=== PATIENT | male | born 1965 | race Caucasian/White ===

== ENCOUNTER 2022-01-22 08:57 | Emergency (ER) | payer OTHER, SELFPAY ==
[2022-01-22 09:20] VITALS: BP 125/72; PULSE 80; RESP 18; TEMP 36.9; O2SAT 93
--- NOTE | 2022-01-22 09:36 | ED.URI ---
HPI - URI/Sore Throat General Chief Complaint: Upper Respiratory Infection Stated Complaint: cough,sore throat Time Seen by Provider: 01/22/22 09:36 Source: patient and RN notes reviewed Mode of arrival: ambulatory Limitations: no limitations History of Present Illness HPI Narrative: 56 y/o male presented for c/o sinus congestion and nonproductive cough for over one week. Took negative covid tests at home. Taking Benadryl as needed. States he felt like it was allergies at the onset. Endorses more congestion now. Denies sob, n/v/d/f/c. Hx pacemaker. MD elicited complaint: cough Related Data Home Medications Medication Instructions Recorded Confirmed carvedilol 12.5 mg tablet 12.5 mg PO BID 01/22/22 01/22/22 lisinopril 5 mg tablet 5 mg PO DAILY 01/22/22 01/22/22 Allergies Allergy/AdvReac Type Severity Reaction Status Date / Time No Known Allergies Allergy Unverified 01/22/22 09:34 Review of Systems Review of Systems: CONSTITUTIONAL: denies malaise, chills, sweats, fever EYES: Denies visual changes, redness, or discharge ENT: Reports rhinorrhea, congestion, sinus pain CARDIOVASCULAR: Denies chest pain, palpitations, edema RESPIRATORY: Reports cough, post nasal drainage. Denies dyspnea GASTROINTESTINAL: Denies abdominal pain, nausea, vomiting, diarrhea PMFSH Social History Social History Smoking status: Never smoker Alcohol intake: current Exam Narrative: GENERAL: well-appearing EYES: conjunctivae clear ENT: Mucous membranes moist. TMs pearly [place] with dull light reflex bilaterally; no tragal tenderness. Oropharynx erythematous without lesions or exudate, no drooling, no hoarseness, no trismus, uvula midline. CHEST: Clear to auscultation, breath sounds equal HEART: Regular rate and rhythm. No murmur heard. SKIN: Warm, dry, no rash. NEURO: Alert and oriented x3. PSYCH: Normal mood and affect Course Course Emergency Course: Patient is aware of diagnosis, understands and agrees to treatment plan. Anticipatory guidance given. Patient agrees to follow-up as directed and is aware of reasons to seek care at the emergency department. Portions of this record may have been created with voice recognition software Level of Care: Express Care Visit Vital Signs Vital signs: Vital Signs Temperature 98.4 F 01/22/22 09:20 Pulse Rate 80 01/22/22 09:20 Respiratory Rate 18 01/22/22 09:20 Blood Pressure 125/72 01/22/22 09:20 Pulse Oximetry 93 01/22/22 09:20 Temperature 98.4 F 01/22/22 09:20 Pulse Rate 80 01/22/22 09:20 Respiratory Rate 18 01/22/22 09:20 Blood Pressure 125/72 01/22/22 09:20 Pulse Oximetry 93 01/22/22 09:20 reviewed MDM - URI/Sore Throat MDM Narrative Medical decision making narrative: Advised supportive measures for URI, if symptoms do not improve with those measures he can start Augmentin, stating he has not yet established with new pcp; reviewed signs/symptoms to go to the ER. Pt is appropriate for outpt treatment and f/u. Differential Diagnosis Differential diagnosis: Likely upper respiratory infection, sinusitis and viral infection Discharge Plan Discharge Clinical Impression: Upper respiratory infection Patient Disposition: Home, Self-Care Condition: Stable Instructions: Antibiotic Form, Sinusitis (ED) Additional Instructions: Recommend Flonase spray and Zyrtec (or Claritin/Alicia) If no improvement you can start the antibiotic over the counter Cough syrup may cause drowsiness; avoid driving or take it at night time. Tylenol 1000mg every 8 hours as needed for pain/fever Symptomatic treatment includes: rest, fluids, and increase humidity of the air at home. Follow up with your primary care provider as needed in 1-2 weeks Go to the ER for worsening symptoms or concerns Prescriptions: New cetirizine [Zyrtec] 10 mg tablet 10 mg PO DAILY PRN (Reason: congestion) Qty: 3
== END 2022-01-22 10:10 | disposition home or self-care (01) ==
PROVIDERS: Emergency Provider Nurse Practitioner Family; PCP Family Medicine
DX: J06.9 Acute upper respiratory infection, unspecified (principal); Z20.822 Contact with and (suspected) exposure to COVID-19
CPT/HCPCS: 87426; 99203; C9803; G0463

== ENCOUNTER 2023-05-06 09:25 | Emergency (ER) | payer OTHER, SELFPAY ==
--- NOTE | ~2023-05-06 | XR_ITS ---
EXAMINATION: XR knee RT min 4V DATE: 05/06/2023 09:55 INDICATION: Right knee pain and erythema. TECHNIQUE: 5 views of right knee were obtained. COMPARISON: None. FINDINGS: Bone alignment is normal. No fracture. There is mild osteoarthritis of medial and patellofe moral compartments characterized by tiny osteophytes. No joint space narrowing. No knee joint effusio n. There is prepatellar and superficial infrapatellar soft tissue swelling, consistent with bursitis. IMPRESSION: 1. Mild right knee osteoarthritis. 2. Prepatellar and superficial infrapatellar bursitis. Reviewed, dictated and finalized at location A. O WORKER
[2023-05-06 09:38] VITALS: BP 109/66; PULSE 59; RESP 16; TEMP 36.4; O2SAT 100
--- NOTE | 2023-05-06 09:48 | ED.EXTPRO ---
HPI - Extremity Problem General Chief complaint: Extremity Problem,Nontraumatic Stated complaint: rt knee pain Source: patient Mode of arrival: ambulatory Limitations: no limitations History of Present Illness HPI Narrative: 57-year-old male presents to [facility] with complaints of right knee pain, swelling, erythema and warmth for the past 3 days. Patient denies injury to his pain. Patient reports that the pain is worse with range of motion. Patient has been taking [id number] Aleve with minimal relief. Patient reports history of gout reports that he had a normal uric acid level completed last week per his primary care provider. Patient denies fever, body aches, chills, nausea vomiting or diarrhea. MD Complaint: extremity pain and extremity swelling Onset (ago): day(s) (3) Location: right, lower extremity and knee Radiation: none Relieving factors: nothing Exacerbating factors: range of motion Associated symptoms: denies other symptoms Context: history of gout Related Data Home Medications Medication Instructions Recorded Confirmed carvedilol 12.5 mg tablet 12.5 mg PO BID 01/22/22 05/06/23 lisinopril 5 mg tablet 5 mg PO DAILY 01/22/22 05/06/23 Allergies Allergy/AdvReac Type Severity Reaction Status Date / Time No Known Allergies Allergy Verified 05/06/23 09:40 Review of Systems Constitutional: Constitutional: Denies chills, Denies fatigue, Denies fever(s) and Denies weakness ENT: Denies vertigo, Denies dizziness, Denies epistaxis and Denies nasal congestion Cardiovascular: Cardiovascular: Denies chest pain Respiratory: Respiratory: Denies cough, Denies dyspnea and Denies wheezing Gastrointestinal: Gastrointestinal: Denies diarrhea, Denies nausea and Denies vomiting Musculoskeletal: Musculoskeletal: Reports arthralgias and Reports joint swelling Comments: right knee pain, swelling, warmth and erythema Integumentary/Breasts: Skin/Breast: Denies rash PMF Past Medical History Medical History Dilated cardiomyopathy Encounter for annual physical exam Gout History of cardioversion Hyperlipidemia Pacemaker Paroxysmal ventricular tachycardia ICD implanted 2013, replaced with additional lead 2021 Surgical History Surgical History History of colonoscopy 04/28/2018 Dr. 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 There is no relevant family history pertinent to the presenting complaint. Exam Const: General: healthy appearing and no acute distress Nutritional Appearance: well nourished Orientation/consciousness: patient oriented x3 Limitations: no limitations HENMT: Head: normal to inspection Eyes: Conjunctivae: conjunctivae normal Neck: Neck: normal visual inspection Resp: Effort & Inspection: normal respiratory effort and not labored Auscultation: clear to auscultation bilaterally, no crackles, no rales, no rhonchi and no wheezes Cardio: Rate: regular rate
== END 2023-05-06 10:13 | disposition home or self-care (01) ==
PROVIDERS: Emergency Provider Nurse Practitioner Family; PCP Family Medicine
DX: M70.41 Prepatellar bursitis, right knee (principal); M10.9 Gout, unspecified; E78.5 Hyperlipidemia, unspecified; Z95.810 Presence of automatic (implantable) cardiac defibrillator
CPT/HCPCS: 73564; 99213; G0463

== ENCOUNTER 2024-04-07 10:00 | Outpatient (RCR) | payer OTHER, SELFPAY ==
--- NOTE | 2024-03-10 10:04 | PTOPEVAL1 ---
Assessment and note entered by Vilma Dockery, PT Evaluation Information Assessment Status Evaluation Diagnosis M25.552 ICD-10 Condition Codes (PT) M54.16,Pain in left hip M25.552,Difficulty Walking R26.2,R26.9,Weakness R53.1 Onset 02/26/2024 Subjective Information Reports sudden onset of sharp pain to lower buttocks area to the outside of the L hip. This pain goes is usually felt at one spot in the side buttocks and occasionally goes down to upper thigh . Described pain as sore, sharp and dull all at once, more on the soreness. Mainly sitting at work , but walks a lot 3-4 miles 2-3x/wk, this is currently limited due to pain. Sometimes pain wakes him up night due to discomfort, mostly feeling pain during the day at random times. Rested a couple days due to pain, denies significant difficulty with activities. Personal goal is to return to walking speed and performing tasks without pain and discomfort. Assessment PT Clinical Summary Pt is a 58 yo male who presents with pain to L hip and posterolateral area of buttocks, with occasional tingling sensation going to thigh. Pt lives an active lifestyle and goes for a daily walk 3-4 miles/day however it is currently limited due to pain and discomfort. Pt demos mild gait deviation, postural deficits, ROM and strength impairments, muscle imbalance impacting IADLs and recreational activities. He will benefit from skilled PT to address and manage pain, improve hip mobility, improve general strength and posture in order to return to PLOF without pain and improve QOL. Plan of Care Interventions Check Out for Orthotic/Pr,Gait Training,Hot Pack/ Cold Pack,Manual Therapy,Neuro Re-education, Patient/Caregiver Education,Therapeutic Activities, Therapeutic Exercise,Ultrasound,Other Other Interventions [facility] Indicated Yes Treatment Frequency and 2x/wk x 12 visits Duration These treatments will address the objective and functional deficits as defined above. The patient will be advanced safely and appropriately in order for the patient to progress towards his/her prior level of function. Additional exercises will be introduced and as well as a comprehensive home exercise program upon discharge, if needed, ?to ensure carryover of functional gains achieved in the clinic. This treatment plan has been reviewed and agreement upon by the patient.
--- NOTE | 2024-04-18 16:59 | PCPTNOTE ---
Addendum note Late entry of lacking information to patient's Discharge note on April 07, 2024 due to technical errors.
--- NOTE | 2024-04-21 10:27 | PTOPDC ---
Assessment and note entered by Vilma Dockery, PT Discharge Information Assessment Status Discharge Diagnosis M25.552 ICD-10 Condition Codes (PT) M54.16,Pain in left hip M25.552,Difficulty Walking R26.2,R26.9,Weakness R53.1 Onset 02/26/2024 Subjective Information Pt reports that he has walked 5 miles or more without discomfort and feels that hip is so much better. Reports compliance with HEPs, and regular workout in the gym. Assessment PT Clinical Summary Pt received a total of 6 treatment visits and currently demos significant reduction in pain and mobility allowing return to PLOF recreational activities. Presents with improved flexibility, balance and gait pattern without discomfort, he has also met all established goals. Reports is very compliant with HEPs and continue to live an active lifestyle. Skilled PT intervention/services discontinued and not necessary at this time. Plan of Care PT Services Indicated No
== END 2024-04-21 12:54 | disposition home or self-care (01) ==
LOC: ANHHIPT 10:00
PROVIDERS: PCP Family Medicine; Visit Provider Nurse Practitioner Family
DX: M25.552 Pain in left hip (principal)
CPT/HCPCS: 97012; 97110; 97112; 97140; 97161; 97750

== ENCOUNTER 2024-04-18 08:02 | Emergency (ER) | payer OTHER, SELFPAY ==
--- NOTE | ~2024-04-18 | XR_ITS ---
EXAMINATION: XR heel RT min 2V DATE: 04/18/2024 08:39 INDICATION: 3 days of posterior right heel pain TECHNIQUE: Lateral and axial views of the right calcaneus were obtained. COMPARISON: None. FINDINGS: Bone alignment is normal. No fracture. Joint spaces are normal. Small plantar calcaneal spur. Soft ti ssues are unremarkable. No ankle joint effusion. IMPRESSION: 1. Small plantar calcaneal spur. Otherwise normal right heel radiographs. Reviewed, dictated and finalized at location A. [employer] TECH
--- NOTE | 2024-04-18 08:11 | ED.EXTPRO ---
HPI - Extremity Problem General Chief complaint: Extremity Problem,Nontraumatic Stated complaint: sharp pain rt heel Time Seen by Provider: 04/18/24 08:24 Source: patient, RN notes reviewed and old records reviewed Mode of arrival: ambulatory Limitations: no limitations History of Present Illness HPI Narrative: 58-year-old male presents to the [facility] with and discomfort to the posterior heel that started on 2-3 days ago. Patient has tried qiti-kqv-[id number] products. Patient states it is worse in the morning, very localized to the posterior middle heal. As the day progresses and he walks, pain decreases. No redness. Denies injury. No swelling. Has full range of motion of the ankle, positive pedal pulse. Sensation intact. Related Data Home Medications Medication Instructions Recorded Confirmed carvedilol 12.5 mg tablet 12.5 mg PO BID 01/22/22 04/18/24 lisinopril 5 mg tablet 5 mg PO DAILY 01/22/22 04/18/24 pantoprazole 40 mg tablet,delayed 40 mg PO DAILY 02/26/24 04/18/24 release Allergies Allergy/AdvReac Type Severity Reaction Status Date / Time No Known Allergies Allergy Verified 04/18/24 08:20 Review of Systems Review of Systems: All systems reviewed & are unremarkable except as noted in HPI and below Constitutional: Constitutional: Reports no additional constitutional complaints ENT: Reports system reviewed and no additional complaints, except as documented Cardiovascular: Cardiovascular: Reports no additional cardiovascular complaints, Denies chest pain and Denies dyspnea Respiratory: Respiratory: Reports no additional respiratory complaints, Denies chest congestion, Denies cough and Denies dyspnea Gastrointestinal: Gastrointestinal: Reports no additional gastrointestinal complaints, Denies abdominal pain, Denies nausea and Denies vomiting Musculoskeletal: Musculoskeletal: Reports as per HPI Integumentary/Breasts: Skin/Breast: Reports system reviewed and no additional complaints, except as docu PMFSH Past Medical History Medical History Dilated cardiomyopathy Gout History of cardioversion Hyperlipidemia Pacemaker Paroxysmal ventricular tachycardia ICD implanted 2013, replaced with additional lead 2021 Right knee pain Surgical History Surgical History History of colonoscopy 04/28/2018 Dr. Newman, repeat 10 years Family History Family History Father Diabetes mellitus Heart disease Mother Diabetes mellitus Heart disease Social History Social History Social History: 03/19/24 very confident with medical forms Smoking status: Never smoker Alcohol intake: current Substance use: never Do You Feel Safe in your Home?: Yes Lack of Transportation: No Lack of Food: Never True Current Housing: I Have Housing Concerned About Future Housing: No Difficulty Paying Gas/Electric Bills: No Difficulty Paying for Meds: No Currently Unemployed: No Education: Master's Degree or Higher Difficulty w/ Childcare or Family Care: No Living arrangements: with family Occupation/Education: occupation 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 There is no relevant family history pertinent to the patient complaint. Exam Const: General: cooperative, healthy appearing, comfortable, no acute distress, well developed, alert and well nourished Nutritional Appearance: well nourished Orientation/consciousness: patient oriented x3 Limitations: no limitations HENMT: Head: normal to inspection Ears: hearing grossly normal bilaterally and external ears normal Face/Nose/Sinus: Normal external nose present, normal facial exam and face symmetric Face and sinus: normal facial exam and face symmetric Eyes: General: appearance normal, both eyes and all related structures Alignment and Position: alignment normal Periorbital: periorbital findings normal Neck: Neck: normal visual inspection, full ROM, no lymphadenopathy and no meningeal signs Chest: Chest palpation & inspection: normal inspection of the chest Resp: Effort & Inspection: normal respiratory effort and able to speak in complete sentences Cardio: Rate: regular rate Skin: General skin exam: normal color and no rashes or lesions noted Lesions: no lesions Rashes: no rashes Wounds: no wounds Neuro: General: patient oriented x3, gait normal, tone normal, moves all extremities and no meningeal signs Cognition (Neuro): normal cognition Speech: normal speech Gait exam (Neuro): Normal gait present Extrem: General: normal to inspection, full ROM, capillary refill normal and normal gait Right lower extremity: foot Details: tenderness (Posterior calcaneus), toes with normal ROM, no edema and vascular exam Details: dorsalis pedis pulse present and normal capillary refill; no abrasion, no laceration, no ecchymosis and no puncture wound Psych: Appearance: grossly normal and well kempt Mental Status: mental status grossly normal Speech and movement: Normal speech and movement present and Clear speech present Affect: normal affect Attitude: cooperative Course Course Level of Care: Express Care Visit Vital Signs Vital signs: Vital Signs Temperature 97.3 F L 04/18/24 08:17 Pulse Rate 60 04/18/24 08:17 Respiratory Rate 18 04/18/24 08:17 Blood Pressure 136/81 04/18/24 08:17 Pulse Oximetry 100 04/18/24 08:17 Oxygen Delivery Room Air 04/18/24 08:17 Temperature 97.3 F L 04/18/24 08:20 Pulse Rate 60 04/18/24 08:20 Respiratory Rate 18 04/18/24 08:20 Blood Pressure 136/81 04/18/24 08:20 Pulse Oximetry 100 04/18/24 08:20 Oxygen Delivery Room Air 04/18/24 08:20 Reviewed MDM - Extremity (Nontraumatic) Imaging Data Radiologist's impression: EXAMINATION: XR heel RT min 2V DATE: 04/18/2024 08:39 INDICATION: 3 days of posterior right heel pain TECHNIQUE: Lateral and axial views of the right calcaneus were obtained. COMPARISON: None. FINDINGS: Bone alignment is normal. No fracture. Joint spaces are normal. Small plantar calcaneal spur. Soft tissues are unremarkable. No ankle joint effusion. IMPRESSION: 1. Small plantar calcaneal spur. Otherwise normal right heel radiographs. Critical Care Time Critical Care Time Critical Care Time: No Discharge Plan Discharge Clinical Impression: Calcaneal spur, right Patient Disposition: Home, Self-Care Condition: Stable Instructions: Antibiotic Form, Heel Spur (ED) Additional Instructions: Wear good supportive shoes at all times. Ice should be applied to help reduce swelling. It can be used for 20 to 30 minutes, every 2-3 hours while awake. Do not apply ice directly to your skin. You can alternate ibuprofen 600mg and Tylenol 650mg every 4 hours as needed for pain Please schedule a follow-up visit with your personal physician for further evaluation and treatment within 2 weeks especially if symptoms persist. For new or worsening symptoms go directly to the emergency room Patient Language: Upper Sorbian Prescriptions: No Action carvedilol 12.5 mg tablet 12.5 mg PO BID lisinopril 5 mg tablet 5 mg PO DAILY pantoprazole 40 mg tablet,delayed release (DR/EC) 40 mg PO DAILY allopurinol 100 mg tablet 100 mg PO DAILY Qty: 90 0RF Follow-up/Referrals: Robbi Wallace Jr., DPM [Physician] - Adina Keyes APN-C [Primary Care Provider] - Laith Lu DPM [Physician] - Time of Disposition: 09:05
[2024-04-18 08:17] VITALS: BP 136/81; PULSE 60; RESP 18; TEMP 36.3; O2SAT 100
[2024-04-18 08:20] VITALS: BP 136/81; PULSE 60; RESP 18; TEMP 36.3; O2SAT 100
== END 2024-04-18 09:10 | disposition home or self-care (01) ==
PROVIDERS: Emergency Provider Nurse Practitioner; PCP Nurse Practitioner Family
DX: M77.31 Calcaneal spur, right foot (principal); E78.5 Hyperlipidemia, unspecified; M10.9 Gout, unspecified; Z95.810 Presence of automatic (implantable) cardiac defibrillator
CPT/HCPCS: 73650; 99213; G0463

== ENCOUNTER 2025-03-09 10:11 | Outpatient (CLI) | payer OTHER, SELFPAY ==
--- NOTE | ~2025-03-09 | XR_ITS ---
EXAMINATION: XR wrist LT min 3V, 03/09/2025 10:23 CDT HISTORY: S56.512A - Strain of other extensor muscle, fascia and te... COMPARISON: No comparisons available. Findings: No acute fracture or malalignment. No significant degenerative changes. Soft tissues unremarkable. Impression: No acute fracture or malalignment. Reviewed, dictated and finalized at location P. Impression: No acute fracture or malalignment.
--- OUTSIDE RECORDS SUMMARY | 2025-03-09 11:44 | XMS_ITS | Clinical Summary ---
Author Organization [facility] Address [address] [address] Care Team Providers Care Steward/Stewardess Night Name Role Phone Mike Burton MD Primary Care Provider [phone] Source Comments [facility],non-owned Affiliates and Associated Physician Practices is amultiple site organization consisting of ambulatory clinics and hospital sitesin [place], [place], [place] and [place]. This disclosure is being madepursuant to the Care Everywhere program and may not contain all information available regarding this patient. Last updated 18.[facility] Allergies No known active allergies Medications * Be aware that medications may not be up to date on this document. Alwaysverify current medications with the patient. No known medications Active Problems Patient Care Coordination No te Formatting of this note migh t be different from the original. EP - Dr. William Trujillo Problem Noted Date Diagnosed Date Sinoatrial node dysfunction 12/27/2014 Pacemaker 12/27/2014 Overview (12/27/2014): Med[employer]onic Pacemaker - Advisa DR FLORIAN [id number] SN: [id number] - Implanted 12/24/[address] aCrlos Steele RA: MEDT [id number] SN: [id number] (Implanted 12/24/2013) RV: MEDT 5086 SN: [id number] (Implanted 12/24/2013) Other forms of acute ischemic heart disease 11/25 Chest pain 11/03/2013 Overview (06/01/2016): Overview: 08/07 stress EKG (submax -- modified protocol) 3:15--66% maximal heart rate, no ischemia 10/07 cath: normal coronaries, EF 65%, LV 101/14 Paroxysmal ventricular tachycardia 09/29/2013 Overview (06/20/2015): Overview: 07/10 EKG: wide complex rhythm at 282 bpm, right axis deviation -> no change w/ adenosine -> spontaneously SR later 07/10 EKG SR at 98, RBBB, small inferior Q waves, nonspecific ST abnormality 07/10 TSH normal 10/07 EPS: fascicular VT -> verapamil 11/07 VT at 260 -> shock -> VF -> CPR 11/07 EPS: VT ablation (left anterior fascicle) by Dr. Trujillo 01/07 VT recurrence 01/07 EPS: ablation of left posterior fascicular VT by Dr. Whatley VT (ventricular tachycardia)-fascicular HLD (hyperlipidemia) Diastolic dysfunction Immunizations Immunization Administration Dates Next Due MODERNA SARS-COV-2 COVID-19 VACCINE 0.25ML 09/18 Social History Tobacco Use Types Packs/Day Years Used Date Smoking Tobacco: Never Alcohol Use Standard Drinks/Week Comments Not Asked 0 (1 standard drink = 0.6 oz pur e alcohol) Sex and Gender Information Value Date Recorded Sex Assigned at Male 10/15/2022 12:53 PM CDT Legal Sex Male 11:00 AM CDT Gender Identity Male 10/15/2022 12:53 PM CDT Sexual Orientation Straight 10/15/2022 12 :53 PM CDT Last Filed Vital Signs Vital Sign Reading Time Taken Comments Blood Pressure 143/81 06/16/2019 11:25 AM SCARF AND ANNEAL OPERATOR Pulse 66 06/16/2019 11:25 AM SCARF AND ANNEAL OPERATOR Temperature - - Respiratory Rate - - Oxygen Saturation - - Inhaled Oxygen Concentration - - Weight 79.3 kg (174 lb 12.8 oz) 020 11:25 AM SCARF AND ANNEAL OPERATOR Height 162.6 cm (5' 4) 06/16/2019 11:2 5 AM SCARF AND ANNEAL OPERATOR Body Mass Index 30 06/16/2019 11:25 AM SCARF AND ANNEAL OPERATOR Plan of Treatment Health Maintenance Due Date Last Done Comments COLOGUARD (AGES 45-75) - COLON CA SCREENING 1966 COLON MONITORING 1966 COLONOSCOPY - COLON CA SCREENING 1966 CT COLONOGRAPHY - COLON CA SCREENING 1966 Colorectal Cancer Screening 1966 FIT - COLON CA SCREENING 1966 FLEX SIG - COLON CA SCREENING 1966 LIPID TESTING 1966 HIV SCREENING 1981 HEPATITIS C SCREENING 08/02/1984 DTAP/TDAP/TD VACCINES (1 - Tdap) 1985 HEPATITIS B VACCINE (1 of 3 - 19+ 3-dose series) 1985 PNEUMOCOCCAL VACCINE 50+ (1 of 1 - PCV) 2016 ZOSTER VACCINE (1 of 2) 2016 SCREENING FOR DIABETES 12/15/2023 12/14/2020 DEPRESSION SCREENING 05/27/2024 COVID-19 VACCINE (2024- season) 2025 09/18/2021, 03/23/2021, 08/22/2020, Additional history exists INFLUENZA VACCINE (#1) 2025 2, 03/29/2021, 03/22/2020, Additional history exists HIB VACCINE Aged Out No longer eligi ble based on patient's age to complete this topic HPV VACCINE Aged Out No longer eligi ble based on patient's age to complete this topic MENINGOCOCCAL (Group B) VACCINE SHARED DECISION-MAKING Aged Out No longer eligible based on patient's age to complete this topic MENINGOCOCCAL GROUPS A/C/Y/W VACCINE Aged Out No longer eligible based on patient's age to complete this topic Procedures Procedure Name Priority Date/Time Associated Diagnosis Comments BASIC METABOLIC PANEL (CALCIUM TOTAL) 12/14/2020 7:17 AM CDT from Last 3 Months or Most Recently Relevant to Health Maintenance Results * BASIC METABOLIC PANEL (CALCIUM TOTAL) (12/14/2020 7:17 AM CDT) Glucose 95 65 - 99 mg/dL [facility] INSURANCE BILL BUN 13 6 - 24 mg/dL [facility] Creatinine 0.91 0.76 - 1.27 mg/dL [facility] INSURANCE BILL eGFR by MDRD 95 >59 mL/min/1.7 3 [facility] INSURANCE BILL eGFR by MDRD 110 >59 mL/min/1.7 3 [facility] INS[facility]ANCE BILL Comment: [facility] currently reports eGFR in compliance with the current recommendations of the National Kidney Foundation. [facility] will update reporting as new guidelines are published from the NKF-ASN Task force. BUN/Creatinine Ratio 14 9 - 20 [facility] INSUR[facility] BILL Sodium 141 134 - 144 mmol/L [facility] BILL Potassium 4.8 3.5 - 5.2 mmol/L [facility] BILL Chloride 106 96 - 106 mmol/L [facility] INS[facility] BILL CO2 23 20 - 29 mmol/L [facility] BILL Calcium 9.7 8.7 - 10.2 mg/dL [facility] INSURANCE BILL Comment:FASTING 12/14/2020 7:17 AM CDT 12/14/2020 Narrative Resulting Agency Comment Lab Testing performed at: [facility] [address] [place] [id number] Niru Franco [employer] [facility] [facility] - CHEMISTRY ORD ERABLES Final Result [facility] INSURANCE BILL [address] [place] [address] from Last 3 Months or Most Recently Relevant to Health Maintenance Insurance [employer] Care Teams Steward/Stewardess Night Relationship Specialty Start Date End Date Mike Burton MD [address] [place] [address] [address] [place] [address] PCP - General Internal Medicine 12/29/14
--- OUTSIDE RECORDS SUMMARY | 2025-03-09 11:44 | XMS_ITS | Clinical Summary ---
Author Organization [facility] Address [address] [place] [address] Phone Care Team Providers Care Lining Presser Name Role Phone Mike Burton MD Primary Care Provider [phone] Allergies No known active allergies Medications aspirin (SABRA) 325 mg tablet Take 1 Tab by mouth daily. 10/27/2013 Active Active Problems Patient Care Coordination No te Formatting of this note migh t be different from the original. Conductor/Engineer - Dr. William Trujillo [employer] Sheets Supervisor - Dr. Cleve Eubanks Problem Noted Date Diagnosed Date Diastolic dysfunction 11/03/2013 Overview (11/03/2013): 07/10 echo: EF 69%, moderate diastolic dysfunction, normal valves, mild LEFTY, prominent fat pad 10/07 cath: EDP 14... Chest pain 11/03/2013 Overview (11/03/2013): 08/07 stress EKG (submax -- modified protocol) 3:15--66% maximal heart rate, no ischemia 10/07 cath: normal coronaries, EF 65%, LV 101/14 Ventricular tachycardia (fascicular) 09/29/2013 Overview (01/12/2014): 07/10 EKG: wide complex rhythm at 282 [...] of left posterior fascicular VT by Dr. Whtaley Hyperlipidemia Overview (09/29/2013): 07/10 cholesterol 194 HDL 35 LDL 110 triglyceride 247, normal glucose/TSH, AST 50 ALT 69 Resolved Problems Problem Noted Date Diagnosed Date Resolved Date Wide-complex tachycardia 10/25/201302/2014 Immunizations Immunization Administration Dates Next Due Influenza Seasonal Unspecified Formulation IM Family History Relation Name Status Comments Brother Alive no heart diseas e Father Alive pacemaker Mother Alive no heart diseas e Sister 1 Alive no heart diseas e Sister 2 Alive no heart diseas e Social History Tobacco Use Types Packs/Day Years Used Date Smoking Tobacco: Never Smokeless Tobacco: Never Alcohol Use Standard Drinks/Week Comments Yes 8.3 (1 standard drink = 0.6 oz p ure alcohol) Sex and Gender Information Value Date Recorded Sex Assigned at Male 04/17/2024 12:50 PM MANAGER UNIVERSITY Legal Sex Male 1:00 PM CDT Gender Identity Male 04/17/2024 12:50 PM MANAGER UNIVERSITY Sexual Orientation Not on file Occupation Industry Job Start Date Job End Date [employer] Not on file Not on file No t on file Last Filed Vital Signs Vital Sign Reading Time Taken Comments Blood Pressure 120/72 06/16/2014 3:07 PM MANAGER UNIVERSITY Pulse 86 01/10/2014 4:59 AM CDT Temperature 37.2 C (98.9 F) 01/12/2014 8:00 AM CDT Respiratory Rate 22 01/12/2014 1:30 PM CDT Oxygen Saturation 95% 01/12/2014 1:30 PM CDT Inhaled Oxygen Concentration - - Weight 80.7 kg (178 lb) 06/16/2014 3:07 PM MANAGER UNIVERSITY Height 162.6 cm (5' 4) 06/16/2014 3:07 PM MANAGER UNIVERSITY Body Mass Index 30.55 06/16/2014 3:07 PM MANAGER UNIVERSITY Plan of Treatment Health Maintenance Due Date Last Done Comments DTAP/TDAP/TD VACCINES (1 - Tdap) 1985 HEPATITIS B VACCINES (1 of 3 - 19+ 3-dose series) 07/25 COLORECTAL SCREENING 08/08/2011 Colorectal Cancer Screening 08/08/2011 FIT-DNA Q 3 years 08/08/2011 FIT/FOBT Q 1 year 08/08/2011 Flex Sig/CT Colonography Q 5 years 08/08/2011 ZOSTER VACCINE (1 of 2) 2016 INFLUENZA VACCINE (#1) 2024 03/22/2013 Advance Directives For more information, please contact: [phone] * Full Code (Latest Code Status on File) Date Activated Date Inactivated Comments 01/11/2014 4:00 PM 01/12/2014 6:16 PM * Full Code Date Activated Date Inactivated Comments 01/09/2014 3:56 AM 01/11/2014 4:00 PM * Full Code Date Activated Date Inactivated Comments 10/26/2013 6:32 PM 10/27/2013 7:15 PM * Full Code Date Activated Date Inactivated Comments 10/25/2013 8:06 PM 10/26/2013 6:32 PM * Full Code Date Activated Date Inactivated Comments 10/20/2013 8:29 AM 10/21/2013 12:38 PM Care Teams Lining Presser Relationship Specialty Start Date End Date Mike Burton MD [address] [place] [phone] PCP - General Internal Medicine 09/03/13
== END 2025-03-09 10:12 | disposition home or self-care (01) ==
PROVIDERS: PCP Nurse Practitioner Family; Visit Provider Plastic Surgery
DX: S56.512A Strain of other extensor muscle, fascia and tendon at forearm level, left arm, initial encounter (principal); X58.XXXA Exposure to other specified factors, initial encounter
CPT/HCPCS: 73110

== ENCOUNTER 2025-05-21 09:43 | Emergency (ER) | payer OTHER, SELFPAY ==
[2025-05-21 09:53] VITALS: BP 134/85; PULSE 77; RESP 16; TEMP 36.6; O2SAT 100
--- NOTE | 2025-05-21 10:38 | ED.URI ---
HPI - URI/Sore Throat General Chief Complaint: Upper Respiratory Infection Stated Complaint: Sinus Infection Time Seen by Provider: 05/21/25 10:42 Source: patient, RN notes reviewed and old records reviewed Mode of arrival: ambulatory Limitations: no limitations History of Present Illness HPI Narrative: 59-year-old male presents to the [facility] with continued sinus pressure and drainage. Patient reports that he will be going out of town and wanted make sure he does not need another antibiotic. Per medical record, patient was seen on May 07 2 weeks ago for the same symptoms stating that his symptoms had been going on since . At that time was prescribed Augmentin and a Medrol Dosepak. Related Data Home Medications ?Medication ?Instructions ?Recorded ?Confirmed ?Last Taken ?Type carvedilol 12.5 mg tablet 12.5 mg PO BID 01/22/22 05/21/25 Unknown History pantoprazole 40 mg tablet,delayed 40 mg PO DAILY 02/26/24 05/21/25 Unknown History release lisinopril 5 mg tablet 10 mg PO DAILY 04/27/25 05/21/25 Unknown History Allergies Allergy/AdvReac Type Severity Reaction Status Date / Time No Known Allergies Allergy Verified 05/21/25 09:59 Review of Systems Review of Systems: All systems reviewed & are unremarkable except as noted in HPI and below Constitutional: Constitutional: Reports no additional constitutional complaints ENT: Reports as per HPI and Reports sinus pressure Cardiovascular: Cardiovascular: Reports no additional cardiovascular complaints, Denies chest pain and Denies dyspnea Respiratory: Respiratory: Reports no additional respiratory complaints, Denies chest congestion, Denies cough and Denies dyspnea Musculoskeletal: Musculoskeletal: Reports no additional musculoskeletal complaints Integumentary/Breasts: Skin/Breast: Reports system reviewed and no additional complaints, except as docu PMFSH Past Medical History Medical History Right knee pain Hyperlipidemia Pacemaker Paroxysmal ventricular tachycardia ICD implanted 2013, replaced with additional lead 2021 Dilated cardiomyopathy History of cardioversion Gout Surgical History Surgical History History of colonoscopy 04/28/2018 Dr. Newman, repeat 10 years Family History Family History Father Diabetes mellitus Heart disease Mother Diabetes mellitus Heart disease Social History Social History Social History: 01/19/25 very confident with medical forms Smoking status: Never smoker Alcohol intake: current Substance use: never Lack of Transportation: No Lack of Food: Never True Current Housing: I Have Housing Concerned About Future Housing: No Difficulty Paying Gas/Electric Bills: No Difficulty Paying for Meds: No Currently Unemployed: No Education: Master's Degree or Higher Difficulty w/ Childcare or Family Care: No Living arrangements: with family Occupation/Education: occupation 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 There is no relevant family history pertinent to the patient complaint. Exam Const: General: cooperative, healthy appearing, comfortable, no acute distress, well developed, alert and well nourished Nutritional Appearance: well nourished Orientation/consciousness: patient oriented x3 Limitations: no limitations HENMT: Head: normal to inspection Eyes: General: appearance normal, both eyes and all related structures Alignment and Position: alignment normal Neck: Neck: normal visual inspection, full ROM, no lymphadenopathy and no meningeal signs Chest: Chest palpation & inspection: normal inspection of the chest Resp: Effort & Inspection: normal respiratory effort and able to speak in complete sentences Auscultation: clear to auscultation bilaterally, no crackles, no rales, no rhonchi and no wheezes Cardio: Rate: regular rate Skin: General skin exam: normal color and no rashes or lesions noted Neuro: General: patient oriented x3, gait normal, moves all extremities and no meningeal signs Cognition (Neuro): normal cognition Speech: normal speech Gait exam (Neuro): Normal gait present Extrem: General: normal to inspection, full ROM, capillary refill normal and normal gait Psych: Appearance: grossly normal and well kempt Mental Status: mental status grossly normal Speech and movement: Normal speech and movement present and Clear speech present Affect: normal affect Attitude: cooperative Course Course Level of Care: Express Care Visit Vital Signs Vital signs: Vital Signs Temperature 98 F 05/21/25 09:53 Pulse Rate 77 05/21/25 09:53 Respiratory Rate 16 05/21/25 09:53 Blood Pressure 134/85 05/21/25 09:53 Pulse Oximetry 100 05/21/25 09:53 Temperature 98 F 05/21/25 09:53 Pulse Rate 77 05/21/25 09:53 Respiratory Rate 16 05/21/25 09:53 Blood Pressure 134/85 05/21/25 09:53 Pulse Oximetry 100 05/21/25 09:53 reviewed MDM MDM Narrative Medical decision making narrative: Patient presents to the [facility] with concerns of continued sinus pressure, drainage cough since . Had seen his primary care provider and was prescribed Augmentin and a Medrol Dosepak which he reports did not change in symptoms. Denies using any [id number]-haxnikm products No acute findings noted on exam. No bogginess of the sinus to rinses. Throat with no acute findings. Discussed possible follow-up with ENT due to multiple episodes this year. Patient is appropriate for outpatient treatment with close follow-up Discharge instructions reviewed with patient, as well as provided in writing per nursing staff. The instructions also include specific and strict return/GO TO THE ER as well as f/u information. All questions have been answered, and the patient deny any further questions with discharge and discharge plan. Some parts of this dictation were generated by voice recognition software and may contain typographical and/or grammatical inaccuracies. Differential Diagnosis Differential Diagnosis: Differential diagnostic considerations for upper respiratory infection include upper respiratory infection, croup, otitis media, sinusitis, viral infection, bronchitis, influenza, pharyngitis, strep, uvulitis.? Discharge Plan Discharge Clinical Impression: Sinusitis Qualifiers: Sinusitis location: unspecified location Chronicity: chronic Qualified Code(s): J32.9 - Chronic sinusitis, unspecified Patient Disposition: Home Condition: Stable Instructions: Sinusitis (ED) Additional Instructions: It is very important to treat your symptoms. Drink plenty of water, Gatorade, Pedialyte, ice pops or Jell-O. -Alternate Tylenol and Motrin per package directions for fever or pain. You can alternate every 4 hours -Antihistamine medication such as Zyrtec/Claritin during the day can help improve symptoms. -doing daily nasal irrigations can help relieve pressure your sinuses. Things like a Neti pot -Use Flonase twice a day for 5 days then daily to help reduce the inflammation and dry up your sinuses. -You can also use Coricidin HBP or Mucinex. Be sure to drink plenty of water with this medication at least 8 ounces with every dose and it is important to drink 8 to 10 glasses of water per day. Water is a natural decongestant -Eat and drink things that are easy to swallow, like tea or soup, or popsicles. -Oral rinses such as: Salt water gargles and/or may use topical anesthetic (eg. Chloraseptic spray) or lozenges to relieve dryness or throat pain). -Frequent hand washing or hand caseworker intake is one of the best ways to prevent spread of infection. -Using a vaporizer or humidifier at night will also help thin secretions and help with coughing up phlegm. -Follow up with primary care provider in 7-10 days if condition is not improving - For new or worsening symptoms go directly to the nearest ER Patient Language: [place] Prescriptions: New fluticasone propionate [Flonase Allergy Relief] 50 mcg/actuation spray,suspension 2 spray intranasal DAILY Qty: 16 0RF Rx Instructions: administer into each nostril loratadine 10 mg tablet 10 mg PO DAILY Qty: 30 0RF No Action carvedilol 12.5 mg tablet 12.5 mg PO BID lisinopril 5 mg tablet 10 mg PO DAILY pantoprazole 40 mg tablet,delayed release (DR/EC) 40 mg PO DAILY methylprednisolone [Medrol (Warren)] 4 mg tablets,dose pack See Rx Instructions PO PER PKG DIR Qty: 21 0RF Rx Instructions: PO PER PKG DIR for 6 days amoxicillin-pot clavulanate 875-125 mg tablet 1 tablet PO BID Qty: 14 0RF allopurinol 100 mg tablet 100 mg PO DAILY Qty: 90 0RF Follow-up/Referrals: Adina Keyes APRN [Primary Care Provider, Family Practice] Chaparro Taylor MD [Physician, Ear, Nose, Throat] - 1 Week Stand Alone Forms: Work/School Release IP Time of Disposition: 10:50
== END 2025-05-21 10:54 | disposition home or self-care (01) ==
PROVIDERS: Emergency Provider Nurse Practitioner; PCP Nurse Practitioner Family
DX: J32.9 Chronic sinusitis, unspecified (principal); E78.5 Hyperlipidemia, unspecified; I42.0 Dilated cardiomyopathy; M10.9 Gout, unspecified; Z95.0 Presence of cardiac pacemaker
CPT/HCPCS: 99213; G0463